=== PATIENT | female | born 1975 | race Asian ===

== ENCOUNTER 2022-04-03 10:39 | Emergency (ER) | payer MEDICAID, OTHER, SELFPAY ==
[2022-04-03 10:42] VITALS: BP 142/92; PULSE 72; RESP 18; TEMP 37.2; O2SAT 100; BMI 21.4
[2022-04-03 11:23] LABS: MANUAL DIFF FLAG NO
[2022-04-03 11:27] LABS: Basophils Absolute Auto 0.1 X10*3/uL (0.0-0.2); Basophils Percent Auto 0.6 % (0-2); Eosinophils Absolute Auto 0.2 X10*3/uL (0.0-0.4); Eosinophils Percent Auto 1.9 % (0-4); Hematocrit 44.7 % (37.0-47.0); Hemoglobin 15.2 g/dl (12.0-16.0); Imm Gran Abs Auto 0.01 X10*3/uL (0.00-0.03); Imm Gran Pct Auto 0.1 % (0.0-0.4); Lymphocytes Absolute Auto 2.9 X10*3/uL (1.2-4.9); Lymphocytes Percent Auto 37.5 % (20-40); Mean Corpuscular Hemoglobin 28.7 pg (27.0-33.0); Mean Corpuscular Volume 84.3 fL (80.0-98.0); Mean Platelet Volume 10.5 fL (9.4-12.3); Monocytes Absolute Auto 0.6 X10*3/uL (0.1-1.2); Monocytes Percent Auto 8.2 % (2-11); Neutrophils Percent Auto 51.7 % (45-73); Platelet Count 189 X10*3/uL (160-400); White Blood Count 7.7 X10*3/uL (4.8-10.8)
[2022-04-03 11:28] LABS: Appearance Urine Clear; Color Urine Yellow; Glucose Urine UA Negative (Negative); Leukocyte Esterase Urine Negative (Negative); Nitrite Urine Negative (Negative); PH 5.5 (5.0-9.0); Urine Blood Negative (Negative); Urine Ketones Negative (Negative); Urine Protein Negative (Neg-Trace)
[2022-04-03 11:32] LABS: UPreg QC Valid YES; Urine Pregnancy NEGATIVE (NEGATIVE)
[2022-04-03 11:38] LABS: Alanine Aminotransferase 20 U/L (0-31); Albumin Level 4.6 g/dL (3.5-5.0); Alkaline Phosphatase 47 U/L (39-117); Anion Gap 15 (12-20); Aspartate Amino Transferase 20 U/L (5-31); Bilirubin Total 0.7 mg/dL (0.0-1.0); Blood Urea Nitrogen 14 mg/dL (9-16); Carbon Dioxide 24 mmol/L (22-29); Chloride 104 mmol/L (96-108); Creatinine Clr Calc Pharmacy 66.6; Estimated Glomerular Filt Rate > 60; Glucose Random 94 mg/dL (60-115); Potassium 4.7 mmol/L (3.3-5.1); Sodium 138 mmol/L (135-145); Total Protein 7.9 g/dL (6.5-8.0)
--- NOTE | 2022-04-03 14:19 | ED.GIBLEED ---
HPI - GI Bleed General Chief complaint: GI Bleed Stated complaint: Vaginal bleeding? Time Seen by Provider: 04/03/22 14:04 Source: patient Mode of arrival: ambulatory Limitations: no limitations History of Present Illness MD complaint: blood on toilet paper Onset (ago): year(s) (1) Pain Consistency: intermittent Severity: mild Relieving factors: none Exacerbating factors: bowel movement Context: hemorrhoids Associated symptoms: denies other symptoms Treatments Prior to Arrival: none Related Data Previous Rx's Medication Instructions Recorded docusate sodium 100 mg capsule 100 mg PO BID PRN Constipation #14 04/03/22 (Colace) caps hydrocortisone 2.5 % topical cream 1 appl HI BEDTIME PRN hemorrhoids 04/03/22 with perineal applicator #30 grams (Anusol-HC) polyethylene glycol 3350 17 17 g PO DAILY #119 grams 04/03/22 gram/dose oral powder (Miralax) Allergies Allergy/AdvReac Type Severity Reaction Status Date / Time No Known Allergies Allergy Verified 04/03/22 10:41 Review of Systems Review of Systems: Constitutional : No Weight loss, No Fever, No Chills, No Night Sweats, No Fatigue, No Malaise ENT/Mouth : No Hearing loss, No Ear Pain, No Nasal Congestion, No Sinus Pain, No Hoarseness, No sore throat, No Rhinorrhea, No Swallowing Difficulty Eyes: No Eye Pain, No Swelling, No Redness, No Foreign Body, No Discharge, No Vision Changes Cardiovascular : No Chest Pain, No SOB, No Dyspnea on Exertion, No Orthopnea, No Edema, No Palpitations Respiratory : No Cough, No Sputum, No Wheezing, No Smoke Exposure, No Dyspnea Gastrointestinal : No Nausea, No Vomiting, No Diarrhea, No Constipation, No abdominal Pain, No Hematochezia, No Melena, + hemorrhoids Genitourinary : no irregular bleeding, No Dysuria, No Urinary Frequency, No Hematuria, No Urinary Incontinence, No Urgency, No Flank Pain, No Urinary Flow Changes, No Hesitancy Musculoskeletal : No joint pain, No Myalgias, No Joint Swelling Skin : No Skin Lesions, No rash Neuro : No Weakness, No Numbness, No Paresthesias, No Loss of Consciousness, No Dizziness, No Headache Psych : No Anxiety/Panic, No Depression, No SI/HI/AH/VH, No Social Issues, Heme/Lymph: No Bruising, No Bleeding,No Lymphadenopathy Endocrine : No Polyuria, No Polydipsia, No Temperature Intolerance Yes all other systems are reviewed and are negative [facility] Past Medical History Attestation statement: The following information was validated with the patient. Source: old records reviewed and nursing notes reviewed Social History Social History Advance Directives: No Advance Directives Information Provided: No Physical Exam Vital Signs: Vital Signs: Last Vital Signs Temp 98.9 F 04/03/22 10:42 Pulse 72 04/03/22 10:42 Resp 18 04/03/22 10:42 BP 142/92 H 04/03/22 10:42 Pulse Ox 100 04/03/22 10:42 O2 Del Method 04/03/22 10:42 BMI result Body Mass Index 21.4 vital signs have been reviewed as normal and appeared to be correct. Blood pressure normal. Heart rate normal. Respiration rate normal. Temperature normal. Oxygen saturation normal. Appearance: Alert. Oriented X3. No acute distress. Head: Normal external exam. Normocephalic. Eyes: PERRLA. EOMI. Conjunctiva and sclera normal. Eyelids normal. ENT: Pharynx normal. Uvula midline. Moist mucous membranes. No trismus noted. No drooling noted. No muffled voice noted. Neck: Normal inspection. Neck supple. FROM. No adenopathy. No meningeal signs. CVS: Normal heart rate and rhythm. Heart sound normal. No murmurs noted. Pulses normal throughout. Respiratory: No respiratory distress. Painless inspiration. Breath sounds normal. No wheezes/rales/rhonchi noted. Chest nontender. No accessory muscle usage noted or decreased air movement noted. Abdomen: Soft and nontender. Nondistended. No guarding. No rigidity. Bowel sounds normal in all 4 quadrants. No distention noted. No organomegaly noted. No visible injury noted. No rebound tenderness. Negative Rovsing sign. Negative obturator's sign. Negative psoas sign. Negative Orozco sign. exam: Supervised by YUNG Dumas. Patient noted to have 2 external hemorrhoids. They are not thrombosed. There is no active bleeding and they are nontender. Back: No CVA tenderness. Full range of motion noted. Skin: Skin warm and dry. Normal skin color. Normal skin turgor. No rashes/lesions/lacerations noted. Extremities: Extremities exhibit normal range of motion. Extremities nontender. Neuro: Oriented X 3. No motor deficit. No sensory deficit. Reflexes normal. Normal steady gait. CN's II-XII intact bilaterally? Course Course Course Narrative: Patient noted to have intermittent bleeding from her hemorrhoids over the past year. She does not have any abdominal pain or any nausea vomiting. On exam she does not have any thrombosed hemorrhoids and she is not actively bleeding. Labs have been reviewed and all labs are within normal limits patient does not have anemia. Not consistent with GI bleed or thrombosed hemorrhoid. No additional labs or imaging indicated. Will DC home with symptomatic treatment instructions to follow-up with PCP and to call the general surgeon for outpatient treatment to return if any new or worsening symptoms. Patient with family at bedside understand agree this plan. Medical Decision Making Lab Data MDM Lab Attestation statement: I reviewed the patient's lab results. 04/03/22 11:18 04/03/22 11:18 Labs: Lab Results 04/03/22 04/03/22 04/03/22 Range/Units 11:18 11:18 11:18 WBC 7.7 (4.8-10.8) X10*3/uL RBC 5.30 (4.20-5.50) X10*6/uL Hgb 15.2 (12.0-16.0) g/dl Hct 44.7 (37.0-47.0) % MCV 84.3 (80.0-98.0) fL MCH 28.7 (27.0-33.0) pg MCHC 34.0 (31.0-35.0) g/dl RDW 13.0 (11.0-16.0) % Plt Count 189 (160-400) X10*3/uL MPV 10.5 (9.4-12.3) fL Immature Gran % (Auto) 0.1 (0.0-0.4) % Neut % (Auto) 51.7 (45-73) % Lymph % (Auto) 37.5 (20-40) % [place] % (Auto) 8.2 (2-11) % Eos % (Auto) 1.9 (0-4) % Baso % (Auto) 0.6 (0-2) % Lymph # (Auto) 2.9 (1.2-4.9) X10*3/uL [place] # (Auto) 0.6 (0.1-1.2) X10*3/uL Eos # (Auto) 0.2 (0.0-0.4) X10*3/uL Baso # (Auto) 0.1 (0.0-0.2) X10*3/uL Abs Immat Gran (auto) 0.01 (0.00-0.03) X10*3/uL Absolute Neuts (auto) 4.0 (2.0-8.3) x10*3/uL Absolute Nucleated RBC 0.000 (0.0-0.012) X10*3/uL Nucleated RBC % (auto) 0.0 (0.0-0.2) /100WBC Sodium 138 (135-145) mmol/L Potassium 4.7 (3.3-5.1) mmol/L Chloride 104 (96-108) mmol/L Carbon Dioxide 24 (22-29) mmol/L Anion Gap 15 (12-20) BUN 14 (9-16) mg/dL Creatinine 0.75 (0.5-1.4) mg/dL Estim Creat Clear Calc 66.6 Estimated GFR > 60 Random Glucose 94 (60-115) mg/dL Calcium 10.0 (8.4-10.2) mg/dL Total Bilirubin 0.7 (0.0-1.0) mg/dL AST 20 (5-31) U/L ALT 20 (0-31) U/L Alkaline Phosphatase 47 (39-117) U/L Total Protein 7.9 (6.5-8.0) g/dL Albumin 4.6 (3.5-5.0) g/dL Urine Color Yellow Urine Appearance Clear Urine pH 5.5 (5.0-9.0) Ur Specific [place] 1.020 (1.005-1.025) Urine Protein Negative (Neg-Trace) mg/dL Urine Glucose (UA) Negative (Negative) mg/dL Urine Ketones Negative (Negative) mg/dL Urine Blood Negative (Negative) Urine Nitrite Negative (Negative) Ur Leukocyte Esterase Negative (Negative) Urine Test (NEGATIVE) 02/21/23 Range/Units 11:18 WBC (4.8-10.8) X10*3/uL RBC (4.20-5.50) X10*6/uL Hgb (12.0-16.0) g/dl Hct (37.0-47.0) % MCV (80.0-98.0) fL MCH (27.0-33.0) pg MCHC (31.0-35.0) g/dl RDW (11.0-16.0) % Plt Count (160-400) X10*3/uL MPV (9.4-12.3) fL Immature Gran % (Auto) (0.0-0.4) % Neut % (Auto) (45-73) % Lymph % (Auto) (20-40) % [place] % (Auto) (2-11) % Eos % (Auto) (0-4) % Baso % (Auto) (0-2) % Lymph # (Auto) (1.2-4.9) X10*3/uL [place] # (Auto) (0.1-1.2) X10*3/uL Eos # (Auto) (0.0-0.4) X10*3/uL Baso # (Auto) (0.0-0.2) X10*3/uL Abs Immat Gran (auto) (0.00-0.03) X10*3/uL Absolute Neuts (auto) (2.0-8.3) x10*3/uL Absolute Nucleated RBC (0.0-0.012) X10*3/uL Nucleated RBC % (auto) (0.0-0.2) /100WBC Sodium (135-145) mmol/L Potassium (3.3-5.1) mmol/L Chloride (96-108) mmol/L Carbon Dioxide (22-29) mmol/L Anion Gap (12-20) BUN (9-16) mg/dL Creatinine (0.5-1.4) mg/dL Estim Creat Clear Calc Estimated GFR Random Glucose (60-115) mg/dL Calcium (8.4-10.2) mg/dL Total Bilirubin (0.0-1.0) mg/dL AST (5-31) U/L ALT (0-31) U/L Alkaline Phosphatase (39-117) U/L Total Protein (6.5-8.0) g/dL Albumin (3.5-5.0) g/dL Urine Color Urine Appearance Urine pH (5.0-9.0) Ur Specific [place] (1.005-1.025) Urine Protein (Neg-Trace) mg/dL Urine Glucose (UA) (Negative) mg/dL Urine Ketones (Negative) mg/dL Urine Blood (Negative) Urine Nitrite (Negative) Ur Leukocyte Esterase (Negative) Urine Test NEGATIVE (NEGATIVE) Prescription Management I considered prescription management with: Other (Stool softeners and laxatives along with symptomatic treatment for her hemorrhoid topical treatment) Discharge Plan Discharge Clinical Impression: Hemorrhoids Patient Disposition: Home, Self-Care Instructions: Hemorrhoids (ED), Hemorrhoidectomy (DC) Prescriptions: New docusate sodium [Colace] 100 mg capsule 100 mg PO BID PRN (Reason: Constipation) Qty: 14 0RF polyethylene glycol 3350 [Miralax] 17 gram/dose powder 17 g PO DAILY Qty: 119 0RF hydrocortisone [Anusol-HC] 2.5 % cream with perineal applicator 1 appl HI BEDTIME PRN (Reason: hemorrhoids) Qty: 30 2RF Referrals: Obie Moody MD [Physician] - (call to make a follow up for your hemorrhoid's within the next few weeks)
== END 2022-04-03 14:34 | disposition home or self-care (01) ==
PROVIDERS: Emergency Provider Emergency Medicine
DX: K64.4 Residual hemorrhoidal skin tags (principal); I10 Essential (primary) hypertension
CPT/HCPCS: 36415; 80053; 81003; 81025; 85025; 99283; 99284

== ENCOUNTER → 2022-04-11 08:05 | Outpatient (BNVA) | payer OTHER, SELFPAY | PROVIDERS: Visit Provider Surgery | DX: K64.8 Other hemorrhoids (principal) | CPT/HCPCS: 46600; 99202 ==

== ENCOUNTER 2022-05-08 06:22 | Day surgery (SDC) | payer OTHER, SELFPAY ==
[2022-05-03 10:35] VITALS: BMI 16.2
--- NOTE | 2022-05-07 09:58 | P.CONAN_ITS ---
Documented by User: Jennifer Olvera NP 05/07/22 09:59 HPI - Anesthesia Eval Consult details Narrative: 46yo F for Hemorrhoidectomy, Exam Under Anesthesia PMFSH Active Problems Active Problems: All Active Problems (Updated 05/03/22 @ 10:26 by Neetu Watson RN) Prolapsed hemorrhoids (Acute) Hypertension (Acute) Past Medical History Medical History (Updated 05/03/22 @ 10:26 by Neetu Watson RN) Elevated cholesterol Hypertension Prolapsed hemorrhoids Surgical History Surgical History (Updated 05/03/22 @ 10:34 by Neetu Watson RN) No pertinent past surgical history Social History Social History Are you a primary transitional care nurse to a significant other at home: No Do you presently have visiting nurse or other home services: No Alcohol intake: never Patient Tobacco Use Status: Never used Tobacco Use of substances other than those prescribed or required for medical reasons: No Have you been hit, kicked, punched, or otherwise hurt by someone within the past year? If so, by whom?: No Are you DNR?: No Advance Directives: No Advance Directives Information Provided: Yes (brochure mailed) Advance Directives on File: No Recently lost weight without trying: No Eating poorly because of decreased appetite: No Nutrition Risks: No Nutritional Risk Patient : No FDLMP: 04/17/2022 Poor oral hygiene: No (upper partial denture) Meds Allergies Allergy/AdvReac Type Severity Reaction Status Date / Time No Known Allergies Allergy Verified 04/11/22 08:41 Home Medications Medication Instructions Recorded Confirmed Last Taken Type amlodipine 5 mg tablet 5 mg PO DAILY 04/11/22 05/03/22 05/08/22 History aspirin 81 mg tablet,delayed 81 mg PO DAILY 04/11/22 05/03/22 05/07/22 History release atorvastatin 20 mg tablet 20 mg PO BEDTIME 04/11/22 05/03/22 Unknown History Exam Exam Date and Time: May 07, 2022 0958 Height,Weight and Vital Signs: Height 5 ft 8 in Weight 48.308 kg Pertinent Lab Results Pertinent Lab Results: Laboratory Tests 04/03/22 04/03/22 11:18 11:18 WBC 7.7 Hgb 15.2 Hct 44.7 Plt Count 189 Sodium 138 Potassium 4.7 Chloride 104 Carbon Dioxide 24 BUN 14 Creatinine 0.75 Assessment and Plan Assessment Anesthesia Assessment: Chart Reviewed Documented by User: Linsey Chapman MD 05/08/22 08:03 PMFSH Past Medical History Medical History (Updated 05/03/22 @ 10:26 by Neetu Watson RN) Elevated cholesterol Hypertension Prolapsed hemorrhoids Family History Family history of problems with anesthesia: No Surgical History Surgical History (Updated 05/03/22 @ 10:34 by Neetu Watson RN) No pertinent past surgical history History of Problems with Anesthesia: No Social History Social History Are you a primary transitional care nurse to a significant other at home: No Do you presently have visiting nurse or other home services: No Alcohol intake: never Patient Tobacco Use Status: Never used Tobacco Use of substances other than those prescribed or required for medical reasons: No Have you been hit, kicked, punched, or otherwise hurt by someone within the past year? If so, by whom?: No Are you DNR?: No Advance Directives: No Advance Directives Information Provided: Yes (brochure mailed) Advance Directives on File: No Recently lost weight without trying: No Eating poorly because of decreased appetite: No Nutrition Risks: No Nutritional Risk Patient : No FDLMP: 04/17/2022 Poor oral hygiene: No (upper partial denture) Meds Allergies Allergy/AdvReac Type Severity Reaction Status Date / Time No Known Allergies Allergy Verified 04/11/22 08:41 Home Medications Medication Instructions Recorded Confirmed Last Taken Type amlodipine 5 mg tablet 5 mg PO DAILY 04/11/22 05/03/22 05/08/22 History aspirin 81 mg tablet,delayed 81 mg PO DAILY 04/11/22 05/03/22 05/07/22 History release atorvastatin 20 mg tablet 20 mg PO BEDTIME 04/11/22 05/03/22 Unknown History Exam Airway Mallampati Class: II TM Dist: >3cm Neck ROM: Full Partial: Upper Heart: rrr Lungs: cta Assessment and Plan Assessment Anesthesia Assessment: Anesthesia Plan Discussed Final Anesthetic Review Family History of Problems with Anesthesia: No History of Problems with Anesthesia: No NPO: Yes ASA Class: II Final Preanesthetic Review: No Changes in Pt Med Stat, Meds/Allgs Chart Reviewed, Consent Obtained/Reviewed and Anes Risks/Benef Reviewed Patient Risk: Low Procedure Risk: Low Anesthetic Plan Anesthetic Plan: GA and MAC: Disposition: Standard PACU
[2022-05-08] VITALS (7 sets, daily range): BP systolic 118–165; BP diastolic 74–91; PULSE 77–104; RESP 16–18; TEMP 36.1–36.6; O2SAT 98–100
[2022-05-08 07:13] LABS: UPreg QC Valid YES; Urine Pregnancy NEGATIVE (NEGATIVE)
[2022-05-08] MEDS: Lactated Ringers 1,000 ML 100 ML IVCONT (07:14)
--- NOTE | 2022-05-08 08:30 | MHC.SHP ---
Pre-Procedural Eval Section A Date of Service: 05/08/22 The patient is an INPATIENT: No Changes since office visit: No Cold of Flu in the past 2 weeks, No New Medical Problems, No Changes in Medication and No Patient answered all questions The History & Physical has been completed within 30 days and I have reviewed it.: Yes Section B Chief Complaint: Other hemorrhoids Allergies: Allergies Allergy/AdvReac Type Severity Reaction Status Date / Time No Known Allergies Allergy Verified 04/11/22 08:41 Plan I have reviewed the history and physical and performed a pertinent physical examination on my patient. No changes have occurred unless specified. Time Spent With Patient Time: Total time managing care of this patient today ____ minutes.
--- NOTE | 2022-05-08 10:12 | P.OP_ITS ---
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 In view of her discomfort, she wanted to proceed with hemorrhoidectomy.? She understood the technique of the procedure.? She was aware of the risks, benefits, and alternatives. She was brought to the operating room.? She was placed in prone christiana-knife position under general anesthesia via endotracheal tube.? The buttocks were retracted with wide tape laterally.? The perianal area was prepped and draped in the usual sterile fashion.? A surgical time-out was done.? The patient received Cefotan 2 g IV preoperatively Examination of the anal orifice revealed external and internal hemorrhoids on both the left and right side.? I inserted the Jacobo Duenas retractor.? I examined the anal canal circumferentially.? This mixed hemorrhoidal columns were seen and the this wants were on the anterior aspect, the left lateral and posterior aspect.? I proceeded to apply a Regalado grasper at the largest hemorrhoidal column on the anterior anal canal.? I made a figure of 8 stitch at the pedicle using chromic 3-0.? I may an incision around this hemorrhoidal column to the perianal skin using blade 15. I excised this hemorrhoidal column above the plane of sphincters using Metzenbaum scissors.? I closed this incision with a running chromic 3-0 stitch.? Additional hemostatic [id number] sutures were placed for oozing areas. The procedure was duplicated on the left lateral hemorrhoidal column as well as the posterior hemorrhoidal column.? Again each column was retracted with Regalado grasper.? A [id number]-[id number] stitch was placed at the pedicle.? An incision was made around? each hemorrhoidal column to the perianal skin using a blade 15. These 2 other hemorrhoidal columns were excised using scissors above the plane of sphincters.? All incisions were closed with running chromic 3-0 stitch with additional hemostatic sutures being placed. There were 3 of these columns therefore, internal and external , that were excised. Once hemostasis was confirmed, I infiltrated the perianal area with Marcaine 0.5% for postop analgesia.? A rolled Gelfoam was inserted in the anal canal for additional hemostasis.? The procedure was then completed. The patient tolerated the procedure well.? There were no immediate complications.? Initial and final counts of sponges and instruments were correct.? Estimated blood loss about 30 cc . The patient was extubated without difficulty and transferred to the recovery room with stable vital signs.
[2022-05-08] MEDS: oxyCODONE HCl Immed Release 5 MG TABLET PO (11:12)
== END 2022-05-08 14:00 | disposition home or self-care (01) ==
PROVIDERS: Nurse Practitioner; Visit Provider Surgery
PROC: (CPT 46261; principal; 2022-05-08 08:40)
PROC: (CPT 46261; 2022-05-08 08:40)
DX: K64.8 Other hemorrhoids (principal); K64.4 Residual hemorrhoidal skin tags; I10 Essential (primary) hypertension; Z79.82 Long term (current) use of aspirin; E78.00 Pure hypercholesterolemia, unspecified; Z79.899 Other long term (current) drug therapy
CPT/HCPCS: 46261; 81025; 88304; J0131; J1100; J1885; J2405; J2795; J3010

== ENCOUNTER → 2022-05-21 11:17 | Outpatient (BNVA) | payer OTHER, SELFPAY | PROVIDERS: Visit Provider Surgery | DX: K64.8 Other hemorrhoids (principal); R60.0 Localized edema | CPT/HCPCS: 99212 ==

== ENCOUNTER → 2022-06-20 12:32 | Outpatient (BNVA) | payer OTHER, SELFPAY | PROVIDERS: PCP Internal Medicine; Visit Provider Surgery | DX: Z48.815 Encounter for surgical aftercare following surgery on the digestive system (principal); Z87.19 Personal history of other diseases of the digestive system | CPT/HCPCS: 99212 ==

== ENCOUNTER 2022-06-22 11:07 | Emergency (ER) | payer OTHER, SELFPAY ==
--- NOTE | 2022-06-22 11:17 | ED.GENADULT ---
HPI - General Adult General Chief complaint: General Medical Stated complaint: high blood pressure Time Seen by Provider: 06/22/22 11:17 Source: patient Mode of arrival: ambulatory Limitations: no limitations History of Present Illness HPI narrative: 46 yo female with history of HTN on amlodipine 5 mg, HLD who presents to the ER for evaluation of elevated BP and intermittent brief episodes of chest pains. She states her BP has been around 140/90 at home. She just ran out of her amlodipine yesterday and does not have an appointment with her PCP until September. She reports this week she had a couple episodes of sharp, brief, nonradiating left sided chest pains, last episode was 3 days ago. Episodes are not accompanied with SOB, diaphoresis or nausea. She reports being anxious about her meds running out. MD complaint: HTN & CP Onset (ago): day(s) Location: chest Radiation: non-radiation Severity: moderate Quality: sharp Pain Consistency: intermittent Relieving factors: none Exacerbating factors: none Associated symptoms: denies other symptoms Treatments prior to arrival: none Related Data Home Medications Medication Instructions Recorded Confirmed amlodipine 5 mg tablet 5 mg PO DAILY 04/11/22 05/03/22 aspirin 81 mg tablet,delayed 81 mg PO DAILY 04/11/22 05/03/22 release atorvastatin 20 mg tablet 20 mg PO BEDTIME 04/11/22 05/03/22 Previous Rx's Medication Instructions Recorded hydrocortisone 2.5 % topical cream 1 appl NV BEDTIME PRN hemorrhoids 04/03/22 with perineal applicator #30 grams (Anusol-HC) docusate sodium 100 mg capsule 100 mg PO BID #60 caps 05/08/22 (Colace) ibuprofen 600 mg tablet 600 mg PO Q6H PRN pain #30 tabs 05/29/22 oxycodone-acetaminophen 5 mg-325 1 tab PO TID PRN pain #15 tabs 05/29/22 mg tablet (Percocet) amlodipine 5 mg tablet 5 mg PO DAILY #30 tabs 06/22/22 aspirin 81 mg chewable tablet 81 mg PO DAILY #30 tabs 06/22/22 Allergies Allergy/AdvReac Type Severity Reaction Status Date / Time No Known Allergies Allergy Verified 06/20/22 13:21 Review of Systems Review of Systems: Yes all other systems are reviewed and are negative COUNT INCLUDES THE [facility] Past Medical History Medical History (Updated 06/22/22 @ 12:24 by PING Natarajan) Elevated cholesterol Hypertension Prolapsed hemorrhoids (~02/2022) Surgical History H/O hemorrhoidectomy (05/08/22) Social History Social History Are you a primary post acute care nurse to a significant other at home: No Do you presently have visiting nurse or other home services: No Alcohol intake: never Patient Tobacco Use Status: Never used Tobacco Advance Directives: No Physical Exam ED Vital Signs: Vital Signs - 24 hr 06/22/22 11:45 Temperature 97.5 F Pulse Rate 77 Respiratory Rate 16 Blood Pressure 166/86 H Pulse Oximetry 96 Oxygen Delivery Method Room Air BMI result Body Mass Index 21.7 Appearance: Alert. Oriented X3. No acute distress. Head: normocephalic, atraumatic. Eyes: Pupils equal, round and reactive to light. ENT: Pharynx normal. No tonsillar swelling or exudate. Neck: Normal inspection. Neck supple. CVS: Normal heart rate and rhythm. Pulses normal. Respiratory: No respiratory distress. Breath sounds normal. Abdomen: Soft and nontender. +BS x4 Skin: Skin warm and dry. Normal skin color. Normal skin turgor. No rashes. Extremities: No lower extremity edema. No joint swelling. Neuro/psych: Oriented X 3. No motor deficit. No sensory deficit. CN II-XII intact. Normal speech and cognition. Medications Administered Discontinued Medications Generic Name Dose Route Start Last Admin Trade Name Pascale PRN Reason Stop Dose Admin Amlodipine Besylate 5 mg 06/22/22 11:27 06/22/22 11:51 Amlodipine Besylate 5 Mg Tablet PO 06/22/22 11:28 5 mg ONCE ONE Administration Protocol Aspirin 81 mg 06/22/22 11:27 06/22/22 11:51 Aspirin 81 Mg Tab.Chew PO 06/22/22 11:28 81 mg ONCE ONE Administration Medical Decision Making Medical Decision Making MDM Narrative: 46 yo female w/ hx HTN presents to the ER for evaluation of elevated blood pressure at home along with intermittent episodes of atypical chest pain. Doubt ACS given her history. No episodes in the last 3 days. Blood pressure 160 systolic/90s. No current chest pain, headache, vision changes. She was given 5 mg of her amlodipine. Her lab workup, EKG, troponin were all unremarkable. Doubt ACS or cardiac etiology of her chest pain. At this time patient is stable for discharge home with prescription refills for her amlodipine, follow-up with Cardiology and her PCP. Patient agrees with plan. All questions were answered. Stable for discharge home. Differential Diagnosis Differential Diagnoses: The differential diagnosis associated with the presentation includes HTN urgency, anxiety, doubt ACS Lab Data MDM Lab Attestation statement: I reviewed the patient's lab results. 06/22/22 12:06/22/22 12: Labs: Lab Results 06/22/22 06/22/22 06/22/22 Range/Units : 12: 12: WBC 7.6 (4.8-10.8) X10*3/uL RBC 5.09 (4.20-5.50) X10*6/uL Hgb 14.6 (12.0-16.0) g/dl Hct 42.0 (37.0-47.0) % MCV 82.5 (80.0-98.0) fL MCH 28.7 (27.0-33.0) pg MCHC 34.8 (31.0-35.0) g/dl RDW 12.7 (11.0-16.0) % Plt Count 174 (160-400) X10*3/uL MPV 11.1 (9.4-12.3) fL Immature Gran % (Auto) 0.4 (0.0-0.4) % Neut % (Auto) 51.4 (45-73) % Lymph % (Auto) 37.0 (20-40) % [place] % (Auto) 7.5 (2-11) % Eos % (Auto) 2.8 (0-4) % Baso % (Auto) 0.9 (0-2) % Lymph # (Auto) 2.8 (1.2-4.9) X10*3/uL [place] # (Auto) 0.6 (0.1-1.2) X10*3/uL Eos # (Auto) 0.2 (0.0-0.4) X10*3/uL Baso # (Auto) 0.1 (0.0-0.2) X10*3/uL Abs Immat Gran (auto) 0.03 (0.00-0.03) X10*3/uL Absolute Neuts (auto) 3.9 (2.0-8.3) x10*3/uL Absolute Nucleated RBC 0.000 (0.0-0.012) X10*3/uL Nucleated RBC % (auto) 0.0 (0.0-0.2) /100WBC Sodium 139 (135-145) mmol/L Potassium 4.2 (3.3-5.1) mmol/L Chloride 106 (96-108) mmol/L Carbon Dioxide 23 (22-29) mmol/L Anion Gap 14 (12-20) BUN 12 (9-16) mg/dL Creatinine 0.79 (0.5-1.4) mg/dL Estim Creat Clear Calc 63.2 Estimated GFR > 60 Random Glucose 94 (60-115) mg/dL Calcium 9.7 (8.4-10.2) mg/dL Magnesium 2.0 (1.6-2.6) mg/dL Total Bilirubin 0.4 (0.0-1.0) mg/dL Direct Bilirubin 0.1 (0.0-0.5) mg/dL AST 19 (5-31) U/L ALT 22 (0-31) U/L Alkaline Phosphatase 49 (39-117) U/L Troponin I High Sens < 2.7 (<3.5-17.0) ng/L Total Protein 7.4 (6.5-8.0) g/dL Albumin 4.4 (3.5-5.0) g/dL Independent Interpretation I performed an independent interpretation of an: EKG Interpretation: EKG with normal sinus rhythm, ventricular rate 70 beats per minute, T-wave inversions in leads [address] No [address] segment elevations or depressions. Normal NV interval. Normal QTC. External Record Review External record reviewed: Outpatient record, Prior outpatient labs and Prior outpatient radiology Prescription Management I considered prescription management with: Other (anti-hypertensives) Chronic Conditions Patient?s care impacted by: Hypertension Scores Heart Score History: -0- slightly suspicious ECG: -0- normal Age: -1- >45 - <65 Risk factory: -1- 1 or 2 risk factors Troponin: -0- < or = normal limit Score: 2 Risk: 1.7% Critical Care Time Critical Care Time Critical Care Time: No Discharge Plan Discharge Clinical Impression: Hypertension Patient Disposition: Home, Self-Care Instructions: Hypertension (ED) Additional Instructions: Your lab workup and EKG were unremarkable. A 4 month supply of amlodipine 5 mg was sent to your pharmacy. Follow up with your PCP as scheduled in September. Recommend following up with Cardiology for further evaluation and treatment of your chest pains. If you develop new or worsening symptoms call 911 or come back to the ER for further evaluation. Navas an?lisis de laboratorio y electrocardiograma fueron normales. Se envi? a navas farmacia un suministro de 4 meses de amlodipina de 5 mg. Dionte un seguimiento con navas PCP seg?n lo programado en debi. Recomiende hacer un seguimiento con Cardiolog?a para chip mayor evaluaci?n y tratamiento de olena maddy en el pecho. Si desarrolla s?ntomas nuevos o que empeoran, llame al 911 o regrese a la asaf de emergencias para chip evaluaci?n adicional. Prescriptions: New amlodipine 5 mg tablet 5 mg PO DAILY Qty: 30 3RF aspirin 81 mg tablet,chewable 81 mg PO DAILY Qty: 30 3RF No Action ibuprofen 600 mg tablet 600 mg PO Q6H PRN (Reason: pain) Qty: 30 0RF oxycodone-acetaminophen [Percocet] 5-325 mg tablet 1 tab PO TID PRN (Reason: pain) Qty: 15 0RF Rx Instructions: Partial Fill upon patient request. hydrocortisone [Anusol-HC] 2.5 % cream with perineal applicator 1 appl NV BEDTIME PRN (Reason: hemorrhoids) Qty: 30 2RF docusate sodium [Colace] 100 mg capsule 100 mg PO BID Qty: 60 2RF atorvastatin 20 mg tablet 20 mg PO BEDTIME amlodipine 5 mg tablet 5 mg PO DAILY aspirin 81 mg tablet,delayed release (DR/EC) 81 mg PO DAILY Referrals: [facility] [Provider Group] (chest pain, hx HTN) Lin Feng MD [Primary Care Provider] - Print Language: Mongolian
--- NOTE | 2022-06-22 11:27 | ECG_ITS ---
Test Reason : chest pain Blood Pressure : / mmHG Vent. Rate : 070 BPM Atrial Rate : 070 BPM P-R Int : 152 ms QRS Dur : 066 ms QT Int : 398 ms P-R-T Axes : 026 021 017 degrees QTc Int : 429 ms Normal sinus rhythm cannot exclude old Septal infarct , age undetermined -could be related to body habitus and lead placement Abnormal ECG No previous ECGs available Referred By: Violeta James Electronically Signed By:GARY DIAMOND
[2022-06-22 11:45] VITALS: BP 166/86; PULSE 77; RESP 16; TEMP 36.4; O2SAT 96; BMI 21.7
[2022-06-22] MEDS: Aspirin 81 MG TAB.CHEW PO (11:51)
[2022-06-22] MEDS: amLODIPine Besylate 5 MG TABLET PO (11:51)
[2022-06-22 12:26] LABS: MANUAL DIFF FLAG NO
[2022-06-22 12:29] LABS: Basophils Absolute Auto 0.1 X10*3/uL (0.0-0.2); Basophils Percent Auto 0.9 % (0-2); Eosinophils Absolute Auto 0.2 X10*3/uL (0.0-0.4); Eosinophils Percent Auto 2.8 % (0-4); Hemoglobin 14.6 g/dl (12.0-16.0); Imm Gran Abs Auto 0.03 X10*3/uL (0.00-0.03); Imm Gran Pct Auto 0.4 % (0.0-0.4); Lymphocytes Absolute Auto 2.8 X10*3/uL (1.2-4.9); Mean Corpuscular HGB Conc 34.8 g/dl (31.0-35.0); Mean Corpuscular Hemoglobin 28.7 pg (27.0-33.0); Mean Corpuscular Volume 82.5 fL (80.0-98.0); Mean Platelet Volume 11.1 fL (9.4-12.3); Monocytes Absolute Auto 0.6 X10*3/uL (0.1-1.2); Monocytes Percent Auto 7.5 % (2-11); Neutrophils Absolute Auto 3.9 x10*3/uL (2.0-8.3); Neutrophils Percent Auto 51.4 % (45-73); Platelet Count 174 X10*3/uL (160-400); Red Blood Count 5.09 X10*6/uL (4.20-5.50); Red Cell Distribution Width 12.7 % (11.0-16.0); White Blood Count 7.6 X10*3/uL (4.8-10.8)
[2022-06-22 12:44] LABS: Alanine Aminotransferase 22 U/L (0-31); Albumin Level 4.4 g/dL (3.5-5.0); Alkaline Phosphatase 49 U/L (39-117); Anion Gap 14 (12-20); Aspartate Amino Transferase 19 U/L (5-31); Bilirubin Direct 0.1 mg/dL (0.0-0.5); Bilirubin Total 0.4 mg/dL (0.0-1.0); Blood Urea Nitrogen 12 mg/dL (9-16); Calcium 9.7 mg/dL (8.4-10.2); Carbon Dioxide 23 mmol/L (22-29); Chloride 106 mmol/L (96-108); Creatinine Clr Calc Pharmacy 63.2; Estimated Glomerular Filt Rate > 60; Glucose Random 94 mg/dL (60-115); Potassium 4.2 mmol/L (3.3-5.1); Sodium 139 mmol/L (135-145); Total Protein 7.4 g/dL (6.5-8.0)
[2022-06-22 12:58] LABS: Troponin-I High Sensitivity < 2.7 ng/L (<3.5-17.0)
== END 2022-06-22 13:47 | disposition home or self-care (01) ==
PROVIDERS: Physician Assistant; Emergency Provider Emergency Medicine; PCP Internal Medicine
DX: I10 Essential (primary) hypertension (principal); F41.9 Anxiety disorder, unspecified; E78.5 Hyperlipidemia, unspecified; Z79.02 Long term (current) use of antithrombotics/antiplatelets; Z79.82 Long term (current) use of aspirin; Z79.899 Other long term (current) drug therapy
CPT/HCPCS: 36415; 80048; 80076; 83735; 84484; 85025; 93005; 99283

== ENCOUNTER → 2022-07-16 14:40 | Outpatient (BNVA) | payer OTHER, SELFPAY | PROVIDERS: PCP Internal Medicine; Referring Provider Internal Medicine; Visit Provider Nurse Practitioner Family | DX: R07.89 Other chest pain (principal); I10 Essential (primary) hypertension | CPT/HCPCS: 99202 ==

== ENCOUNTER → 2022-08-06 08:31 | Outpatient (REF) | payer OTHER, SELFPAY ==
--- NOTE | 2022-08-06 08:35 | CA_ITS ---
Transthoracic Echocardiogram Patient (Last, First, Middle): Zully Hagen, Gender: Female Date of : 1975 Age: 47 Procedure Date: 08/06/2022 Procedure Type: Transthoracic Echocardiogram Location: OP Height: 152.4 cm Weight: 50.01 kg BSA: 1.45 m2 Heart Rate: 67 bpm BP: 150 / 80 mmHg [employer] Dies: NEO Referring MD: Agnes Mak BOTANY TECHNICIAN-Maria Elena Symptoms: I10 - Essential (primary) hypertension Study Quality: Adequate ECG Rhythm: Sinus Conclusions: - The left ventricular systolic function is normal. The calculated ejection fraction is 70% by biplane method. - No obvious valvular pathology seen on this study. Findings Left Ventricle Normal left ventricular cavity size. There is normal left ventricular wall thickness. The left ventricular systolic function is normal. The calculated ejection fraction is 70% by biplane method. There is no evidence of regional wall motion abnormalities. Diastolic function is normal for age. LV peak GLS -17.6%. Right Ventricle Normal right ventricular cavity size and systolic function. Atria Both atria are normal in size. Aortic Valve There is a normal trileaflet aortic valve. There is no aortic valve stenosis. There is no aortic valve regurgitation. Mitral Valve The mitral valve appears normal. There is no mitral valve regurgitation. There is no mitral valve stenosis. Pulmonic Valve The pulmonic valve is likely normal. Tricuspid Valve Normal tricuspid valve structure. There is trace tricuspid valve regurgitation. There is no evidence of pulmonary hypertension. Great Vessels The asc aorta is normal in size. Venous The inferior vena cava is normal in size and collapses greater than 50% with inspiration. Pericardium/Pleural There is no evidence of pericardial effusion. Prior Study Comparison No prior study available for comparison. Recommendations, Care & Conclusions No obvious valvular pathology seen on this study. Measurements 2D Linear Measurements IVSd: 0.52 0.6-0.9/0.6-1.0 cm LVIDd: 4.16 3.9-5.3/4.2-5.9 cm LVIDd Index: 2.87 2.4-3.2/2.2-3.1 cm/m2 LVIDs: 2.37 2.0-3.6 cm LVPWd: 0.57 0.7-1.1 cm LA Diam: 2.80 2.7-3.8/3.0-4.0 cm LAIDs Index: 1.93 1.5-2.3 cm/m2 LV Mass: 74.76 67-162/88-224 g LV Mass Index: 51.56 43-95/49-115 g/m2 LVOT Diam: 1.60 3.0+(-)1.3 cm 2D Systolic Function EF 4C: 67.50 >55% EF 2C: 74.90 >55% EF BiP: 69.50 >55% Mitral Valve MV Pk E: 1.23 MV PK A: 0.87 MV Decel Time: 148.00 E/A: 1.40 E'Lateral: 10.70 E'Medial: 8.70 E/E' Med: 14.10 E/E' Lat: 11.50 PHT: 43.00 MVA PHT: 5.12 Decel Crawford: 8.30 Aortic Valve AoV Pk Anibal: 1.62 AoV Mn Anibal: 1.12 AoV VTI: 0.35 AoV Pk Grad: 10.00 Aov Mn Grad: 6.00 JEAN CLAUDE Cont.VTI: 1.43 LVOT LVOT Pk Anibal: 1.16 LVOT Mn Anibal: 0.79 LVOT VTI: 0.25 LVOT Pk Grad: 5.00 LVOT Mn Grad: 3.00 LVOT Diam: 1.60 LVOT Area: 2.01 Diastolic Function MV Pk E: 1.23 MV Pk A: 0.87 E/A: 1.40 E'Medial: 8.70 E/E' Med: 14.10 E' Laterial: 10.70 E/E' Lat: 11.50 Tricuspid Valve TR Pk Anibal: 2.13 TR Pk Grad: 18.00 RA Press: 3.00 RVSP: 21.00 Great Vessels Aorta Sinus of Valsalva: 2.60 2.0-3.5 cm Ao Asc: 2.60 2.1-3.4 cm Pulmonary Valve PV Pk Anibal: 1.64 Peak PV Grad: 11.00 Updated in Other Vendor System with Status of Final Sam Meyers MD electronically signed on 08/06/2022 10:19:13 AM with status of Final
--- NOTE | 2022-08-06 08:35 | CA_ITS ---
Acquisition Time: 2022-08-06 09:48:33 Total Exercise Time: 00:04:13 Test Indications: CP Medications: SEE H Protocol: REGI Max HR: 144 BPM 83% of Pred: 172 BPM Max BP: 170/060 mmHG Max Work Load: 6.0 METS Exercise stress test exercise 4 min 13 sec of Regi protocol achieving 84% MPHR, with mild SOB, no chest discomfort. without arrhythmias, with normotensive response to exercise, without EKG changes meeting criteria for ischemia, with decreased exercise capacity. Test reviewed with Dr Meyers Referred By: Agnes Mak Overread By: AGNES MAK
== END ==
LOC: HO.CARD 08:31
PROVIDERS: PCP Internal Medicine; Visit Provider Nurse Practitioner Family
DX: R07.89 Other chest pain (principal); I10 Essential (primary) hypertension
CPT/HCPCS: 93017; 93306; 93356

== ENCOUNTER 2022-09-07 09:26 | Outpatient (AMB) | payer OTHER, SELFPAY ==
[2022-09-07 09:30] VITALS: BP 130/70; PULSE 72; BMI 21.1
--- NOTE | 2022-09-07 09:30 | MHC.OFFVIS ---
Intake Vital Signs 09/07/22 09:30 Height 5 ft Weight 108 lb 0.424 oz BMI 21.1 BP 130/70 Blood Pressure Location Rt brachial Position Sitting Pulse 72 Pulse Source Pulse Oximeter Intake Visit Reasons: 2 month follow up after testing Intake Note: 2 month f/u after testing Heat Treat Operator Required: No Allergies No Known Allergies Allergy (Verified 09/07/22 09:34) Medication List - Last Reconciled 09/07/22 by Agnes Mak NP-C amlodipine 5 mg PO DAILY aspirin 81 mg PO DAILY atorvastatin 20 mg PO BEDTIME HPI 2 month follow up after testing HPI Details Zully is a 47-year-old female with past medical history of hypertension who had been seen in the emergency room for elevated blood pressure readings and report of chest discomfort. She ruled out for ACS and referred to Cardiology for evaluation. She underwent an exercise stress test and echocardiogram and now presents for follow-up. Today she reports she has been feeling generally well since her last visit. She continues to get sharp pains in her left chest region which are nonexertional and occur randomly. No other concerning symptoms, no shortness of breath, PND, orthopnea or edema. No dizziness, presyncope, syncope. Admits to being mostly sedentary as she is currently out of work. Blood pressure has been controlled with her medications. is present. [facility] Medical History Acute hemorrhoid Elevated cholesterol Hypertension Prolapsed hemorrhoids (~02/2022) Surgical History H/O hemorrhoidectomy (05/08/22) Family History Mother Heart disease Sister Heart disease Hypertension Social History Are you a primary home health care social worker to a significant other at home: No Do you presently have visiting nurse or other home services: No Alcohol intake: never Patient Tobacco Use Status: Never used Tobacco Review of Systems Const All systems reviewed & are unremarkable except as noted in HPI and below ENT Reports dizziness Card Denies chest pain, Denies chest pain at rest, Denies chest pain with activity, Denies rapid heart rate, Denies pedal edema, Denies edema, Denies leg edema, Denies lightheadedness, Denies palpitations, Denies dyspnea, Denies dyspnea on exertion and Denies orthopnea Resp Denies cough, Denies dyspnea and Denies dyspnea on exertion GI Denies hematochezia and Denies change in stool character Musc Denies abnormal gait, Reports limited range of motion, Reports muscle cramps, Denies muscle weakness, Denies numbness, Denies radiating pain into limb, Denies stiffness and Denies tingling Neuro Denies abnormal gait, Reports dizziness, Denies numbness and Denies tingling Endo Denies palpitations Physical Exam Vital Signs: Last Vital Signs Pulse 72 09/07/22 09:30 BP 130/70 09/07/22 09:30 BMI result Body Mass Index 21.1 Const General: cooperative, healthy appearing, comfortable and no acute distress Orientation/consciousness: patient oriented x3 Neck Neck: Yes normal visual inspection Resp Effort & Inspection: normal respiratory effort Auscultation: clear to auscultation bilaterally, no crackles, no rales, no rhonchi and no wheezes Cardio Jugular venous distension: no JVD Rate: regular rate Rhythm: regular rhythm Heart sounds: S1 normal heart sound present, S2 normal heart sound present, no murmurs and no rubs Neuro General: patient oriented x3 Extrem General: Yes normal to inspection, No no pedal edema and No calf tenderness Psych Appearance: grossly normal Mental Status: mental status grossly normal Speech and movement: Normal speech and movement present Assessment & Plan Assessment & Plan (1) Chest discomfort: Code(s): R07.89 - Other chest pain Plan: Reports of sharp chest discomfort occurring at rest and with activity, lasting seconds and resolving, overall atypical for angina. Cardiac risks of family history and hypertension. No known cardiac history. Currently sedentary as she is unemployed. EKG done on 06/22/2022 during ER visit for symptoms shows sinus rhythm with no acute ST or T-wave abnormalities, rate 70. Blood pressure elevated at that time, 166/86. She had run out of amlodipine and it was restarted. Blood pressure currently well controlled. Exercise stress test done on 08/06/2022 shows exercise 4 minutes and 13 seconds with mild shortness of breath and request to stop, achieved 84% MPHR are and no EKG changes of ischemia. Decreased activity tolerance noted. Echocardiogram done 08/06/2022 showing EF 70%, no valve abnormalities, no wall motion abnormalities. Faint murmur noted on examination which could be from her hyperdynamic EF. Instructed to increase her physical activity as tolerated. No indication that her sharp chest discomfort is cardiac in nature. Signs and symptoms of angina reviewed with her. Cardiology follow-up for re-evaluation in 6 months, sooner if needed at her request. (2) Hypertension: Code(s): I10 - Essential (primary) hypertension Plan: History of hypertension since 2018. Controlled on amlodipine. Recent ED visit as above. Currently blood pressure again is controlled on amlodipine 5 mg daily. No changes made. Coding Level of Care Code Est Pt Level 3 (36018) Diagnoses Chest discomfort R07.89 Hypertension I10 Time Spent (min) 24 Comment Chart review, documentation, interview, assessment
== END 2022-09-07 09:50 | disposition home or self-care (01) ==
PROVIDERS: PCP Internal Medicine; Visit Provider Nurse Practitioner Family
DX: R07.89 Other chest pain (principal); I10 Essential (primary) hypertension
CPT/HCPCS: 99213

== ENCOUNTER → 2022-09-07 09:26 | Outpatient (BNVA) | payer OTHER, SELFPAY | PROVIDERS: PCP Internal Medicine; Visit Provider Nurse Practitioner Family | DX: R07.89 Other chest pain (principal); I10 Essential (primary) hypertension | CPT/HCPCS: 99212 ==

== ENCOUNTER 2024-02-11 14:51 | Emergency (ER) | payer OTHER, SELFPAY ==
--- NOTE | ~2024-02-11 | XR_ITS ---
EXAMINATION: XR CHEST CLINICAL INFORMATION: cough 2 weeks COMPARISON: None available. TECHNIQUE: 2 views of the chest were obtained. FINDINGS: No significant abnormality is noted involving the heart, lungs, mediastinum, bony thorax or soft tissues. XR/XR chest 2V IMPRESSION: Unremarkable chest examination. Electronically signed by: Luke Davis MD 02/11/2024 04:15 PM [facility] [place]
--- NOTE | 2024-02-11 15:33 | ED_ITS ---
HPI - General Adult General Chief complaint: Upper Respiratory Symptoms Stated complaint: Flu symptoms Time Seen by Provider: 02/11/24 18:14 Source: patient Mode of arrival: ambulatory Limitations: no limitations History of Present Illness ED Provider: GAYATHRI DWYER narrative: 48 yo female with PMH of HTN who came here from [place] 1 month ago since then c/o sore throat, cough, wheezing, sore throat, subj fevers. Spouse is also ill with productive cough, wheezing, fevers. She has not smoked before or had asthma. She is here with who has same symptoms. MD complaint: URI Onset (ago): week(s) (3) Location: chest Radiation: non-radiation Severity: mild Relieving factors: none Exacerbating factors: other (coughing, nighttime) Associated symptoms: cough, fever/chills and shortness of breath Treatments prior to arrival: none Related Data Home Medications ?Medication ?Instructions ?Recorded ?Confirmed atorvastatin 20 mg tablet 20 mg PO BEDTIME 04/11/22 09/07/22 Previous Rx's ?Medication ?Instructions ?Recorded amlodipine 5 mg tablet 5 mg PO DAILY #30 tabs 06/22/22 aspirin 81 mg chewable tablet 81 mg PO DAILY #30 tabs 06/22/22 azithromycin 250 mg tablet 250 mg PO DAILY 4 days #4 tabs 02/11/24 prednisone 20 mg tablet 40 mg (2 x 20 mg) PO DAILY 4 days 02/11/24 #8 tabs Allergies Allergy/AdvReac Type Severity Reaction Status Date / Time No Known Allergies Allergy Verified 02/11/24 15:36 Review of Systems Review of Systems: Constitutional : No Fever, pos Chills ENT/Mouth : No Hoarseness, No sore throat, No Rhinorrhea Eyes: No Redness, No Discharge, No Vision Changes Cardiovascular : No Chest Pain, positive SOB, positive Dyspnea on Exertion, No Edema Respiratory : positive Cough, pos Sputum, positive Wheezing, Gastrointestinal : No Nausea, No Vomiting, No Diarrhea, No abdominal Pain Genitourinary : No Dysuria, No Hematuria Musculoskeletal : No joint pain, No Myalgias Skin : No rash Neuro : No Weakness, No Numbness, No Headache All other systems reviewed and are negative PMFSH Past Medical History Attestation statement: The following information was validated with the patient. Source: old records reviewed Medical History Acute hemorrhoid Elevated cholesterol Prolapsed hemorrhoids (~02/2022) Hypertension Surgical History H/O hemorrhoidectomy (05/08/22) Family History Family History Mother Heart disease Sister Heart disease Hypertension Social History Social History Are you a primary home visit field care manager to a significant other at home: No Do you presently have visiting nurse or other home services: No Alcohol intake: never Patient Tobacco Use Status: Never used Tobacco Advance Directives: No Advance Directives Information Provided: No Do you have a plan to hurt others: No Plan Physical Exam ED Vital Signs: Vital Signs - 24 hr 02/11/24 15:34 Temperature 97.9 F Pulse Rate 80 Respiratory Rate 16 Blood Pressure 160/85 H Pulse Oximetry 99 Oxygen Delivery Method Room Air BMI result Body Mass Index 21.1 Appearance: Alert. Oriented X3. No acute distress. Eyes: Pupils equal, round and reactive to light. ENT: Pharynx normal. TMs normal no signs of infection Neck: Normal inspection. Neck supple. CVS: Normal heart rate and rhythm. Pulses normal. Respiratory: No respiratory distress. Breath sounds diminished mildly with some rhonchi Abdomen: Soft and nontender. Skin: Skin warm and dry. Normal skin color. Normal skin turgor. Extremities: No lower extremity edema. No calf ttp Neuro: Oriented X 3. No motor deficit. No sensory deficit. Course Course Course Narrative: This is a rapid medical exam performed by Marycarmen George NP: Additional HPI, ROS, PE not included below will be deferred to primary provider. Patient is a 48-year-old female with history of HTN presenting to the ED with complaint of cough, body aches, headache for several weeks. sick with similar symptoms. Using OTC meds without relief. Plan: viral serology, CXR Medical Decision Making Medical Decision Making MDM Narrative: 48 yo female with PMH of HTN who presents with c/o URI symptoms wheezing at time s, dyspnea and productive cough. has same illness. She has tried everything but no relief. At this time viral panel and CXR. Will start on inhaler and zpak/prednisone. Overall well appearing and no resp distress Differential Diagnosis Differential Diagnoses: The differential diagnosis associated with the presentation includes bronchitis, URI Admission/Observation Consideration of admission/observation: Escalation of care including admission/observation considered no hypoxia stable for DC Lab Data MDM Lab Attestation statement: I reviewed the patient's lab results. Labs: Lab Results 02/11/24 Range/Units 15:38 Influenza Type A (PCR) NEGATIVE (Negative) Influenza Type B (PCR) NEGATIVE (Negative) RSV RNA Qual (PCR) NEGATIVE (Negative) SARS-CoV-2 RNA (RT-PCR) NEGATIVE (Negative) Independent Interpretation I performed an independent interpretation of an: Plain X-Ray (normal ) Radiology Impression Discussion of test interpretation with radiology: I have reviewed the radiologist's reading. Independent Historian Clinical information obtained from an independent historian. History obtained from or confirmed by: Spouse External Record Review External record reviewed: Outpatient record Prescription Management I considered prescription management with: Antibiotic and Other Discharge Plan Discharge Clinical Impression: Acute bronchitis Qualifiers: Bronchitis organism: unspecified organism Qualified Code(s): J20.9 - Acute bronchitis, unspecified Patient Disposition: Home, Self-Care Instructions: Acute Bronchitis (ED), How to Use a Dry-Powder Inhaler (ED) Additional Instructions: negative for flu, covid, rsv chest xray no pneumonia take all medications can use INHALER 2 puffs every 4 hours as needed for cough or shortness of breath take steroid with food next dose of antibiotic and steroid is tomorrow return if no improvement or any other concerns. Prescriptions: New azithromycin 250 mg tablet 250 mg PO DAILY 4 Days Qty: 4 0RF Rx Instructions: start on day 2 of therapy prednisone 20 mg tablet 40 mg PO DAILY 4 Days Qty: 8 0RF No Action amlodipine 5 mg tablet 5 mg PO DAILY Qty: 30 3RF aspirin 81 mg tablet,chewable 81 mg PO DAILY Qty: 30 3RF atorvastatin 20 mg tablet 20 mg PO BEDTIME Print Language: Macanese
[2024-02-11 15:34] VITALS: BP 160/85; PULSE 80; RESP 16; TEMP 36.6; O2SAT 99; BMI 21.1
[2024-02-11 16:52] LABS: Influenza A PCR NEGATIVE (Negative); Influenza B PCR NEGATIVE (Negative); Resp Syncy Virus RNA Qual PCR NEGATIVE (Negative); SARS COV2 PCR INHOUSE NEGATIVE (Negative)
[2024-02-11] MEDS: predniSONE 20 MG TABLET 40 MG PO (18:45)
[2024-02-11] MEDS: Azithromycin 500 MG TABLET PO (18:45)
[2024-02-11] MEDS: Albuterol Sulfate 90 MCG 8 GM INHALER 2 PUFF INHALE (18:45)
[2024-02-11 19:14] VITALS: BP 160/85; PULSE 80; RESP 16; TEMP 36.6; O2SAT 99
== END 2024-02-11 19:14 | disposition home or self-care (01) ==
PROVIDERS: Registered Nurse Emergency; Emergency Provider Emergency Medicine
DX: J20.9 Acute bronchitis, unspecified (principal); J02.9 Acute pharyngitis, unspecified; R05.9 Cough, unspecified; R50.9 Fever, unspecified; R06.02 Shortness of breath; Z03.818 Encounter for observation for suspected exposure to other biological agents ruled out
CPT/HCPCS: 0241U; 71046; 99282; 99284

== ENCOUNTER → 2024-02-11 15:35 | Outpatient (BNV) | payer OTHER, SELFPAY | PROVIDERS: Visit Provider Radiology Diagnostic Radiology | DX: R05.9 Cough, unspecified (principal) | CPT/HCPCS: 71046 ==